=== PATIENT | female | born 1930 | race Caucasian/White ===

== ENCOUNTER 2017-05-27 05:08 | Inpatient (IN) | payer MEDICARE, OTHER ==
[~2017-05-27] VITALS: Ht 170.2 cm; Wt 70.0 kg
[2017-05-27 05:55] LABS: Basophils # (auto) 0.1 uL; Basophils % (auto) 1.5 % (0.0-2.0); Eosinophils # (auto) 0 uL; Eosinophils % (auto) 0.1 % (0.0-7.0); Hematocrit 41.3 % (36.0-46.0); Hemoglobin 13.5 g/dL (12.2-16.2); Lymphocytes # (auto) 0.6 uL; Lymphocytes % (auto) 9.6 % (10.0-50.0); Mean Corpuscular Hemoglobin 30.1 pg (28.0-32.0); Mean Corpuscular Hgb Conc. 32.7 g/dL (32.0-36.0); Monocytes # (auto) 0.4 uL; Monocytes % (auto) 6.6 % (0.0-12.0); Neutrophils # (auto) 5.1 uL; Neutrophils % (auto) 82.2 % (37.0-80.0); Nucleated Red Blood Cells % 0.9 %; Platelet Count (auto) 137 10^3/uL (140-450); Red Blood Cells 4.49 10^6/uL (4.0-5.20); Red Cell Distribution Width 15.5 % (11.8-14.3); White Blood Cell 6.3 10^3/uL (4.4-10.8)
[2017-05-27 06:19] LABS: INR 1.22 (0.9-1.15); Partial Thromboplastin Time 32.7 sec (22.64-33.71); Prothrombin Time 13.3 sec (9.37-12.3)
[2017-05-27 06:25] LABS: Albumin 3.5 g/dL (3.4-5.0); BUN/Creatinine Ratio 21.1; Calcium 8.9 mg/dL (8.5-10.1); Potassium 3.7 mmol/L (3.5-5.1)
[2017-05-27 06:30] LABS: Bilirubin, Total 2.2 mg/dL (0.2-1.0); Total Protein 7.1 g/dL (6.4-8.2)
[2017-05-27] MEDS ORDERED: SODIUM CHLORIDE 0.9% 1,000 ML IV ONE (08:11)
[2017-05-27] MEDS ORDERED: MORPHINE SULF INJ 2 MG/ML SYRINGE 1ML IV PRN (08:15)
[2017-05-27] MEDS ORDERED: SPIRONOLACTONE 25 MG TAB PO ONE (08:15)
[2017-05-27] MEDS ORDERED: FUROSEMIDE 40 MG/4 ML VIAL IV ONE ×2 (08:15→11:15)
[2017-05-27] MEDS ORDERED: MORPHINE SULFATE 4 MG/ML SYR/VIAL IV PRN ×3 (08:30→10:30)
[2017-05-27] MEDS ORDERED: LORazepam 0.5 MG TAB PO PRN (10:30)
[2017-05-27] MEDS ORDERED: NITROGLYCERIN 0.4 MG SL TAB SL PRN (10:30)
[2017-05-27] MEDS ORDERED: HYDROcodone-ACET 5/325MG TAB PO PRN (10:30)
[2017-05-27] MEDS ORDERED: ACETAMINOPHEN 500 MG TAB PO PRN (10:30)
[2017-05-27] MEDS ORDERED: TEMAZEPAM 15 MG CAP PO PRN (10:30)
[2017-05-27] MEDS ORDERED: DEXTROSE (50%) 50ML SYRG IV PRN (10:30)
[2017-05-27] MEDS ORDERED: LACTULOSE 20Gm/30ML SOLN PO PRN (10:30)
[2017-05-27] MEDS ORDERED: PROMETHAZINE HCL 25 MG/ML 1ML IV PRN (10:30)
[2017-05-27] MEDS ORDERED: PANTOPRAZOLE 40 MG TAB PO ONE (11:15)
[2017-05-27] MEDS ORDERED: POTASSIUM CHL 20 Meq TABLET PO ONE (11:15)
[2017-05-27] MEDS ORDERED: ENALAPRIL MALEATE 2.5 MG TAB PO ONE (11:15)
[2017-05-27] MEDS ORDERED: CARVEDILOL 3.125 MG TAB PO ONE (11:15)
[2017-05-27] MEDS ORDERED: ENOXAPARIN SOD 40 MG/0.4 ML SYRINGE SC ONE (11:15)
[2017-05-27] MEDS ORDERED: NITROGLYCERIN 0.2MG/HR TOPICAL PATCH TD ONE (11:15)
[2017-05-27] MEDS ORDERED: IOHEXOL 350 MG/ML 100ML IJ ONE (11:39)
[2017-05-27] MEDS: ACCU-CHEK COMFORT CURVE STRIP VI SCH ×3 (12:03→22:53)
[2017-05-27] MEDS: InsuLIN REG 1unit/0.01ml Soln (100units/ml) SC SCH ×3 (12:03→22:00)
[2017-05-27] MEDS: SODIUM CHLOR 0.9% PF (SALINE LOCK) 10ML VIAL IV SCH ×2 (12:18→22:53)
[2017-05-27 12:42] LABS: Amylase 22 U/L (25-115); Lipase 129 U/L (73-393)
[2017-05-27 14:40] VITALS: BP 110/57
[2017-05-27] MEDS ORDERED: SERT-274 PO (14:52)
[2017-05-27] MEDS ORDERED: CARV6.2551 PO (14:52)
[2017-05-27] MEDS ORDERED: SIMV-8 PO (14:52)
[2017-05-27] MEDS ORDERED: SITA50TA PO (14:52)
[2017-05-27] MEDS ORDERED: GLIP10TA59 PO (14:52)
[2017-05-27] MEDS ORDERED: LISI2.5T47 PO (14:52)
[2017-05-27 17:00] VITALS: BP 129/63
[2017-05-27 22:00] VITALS: BP 115/53
[2017-05-27] MEDS ORDERED: ATORVASTATIN 20 MG TAB PO SCH (22:00)
[2017-05-27] MEDS: CARVEDILOL 3.125 MG TAB PO SCH (22:52)
[2017-05-28 04:46] VITALS: BP 124/91
[2017-05-28 04:54] VITALS: BP 111/67
[2017-05-28 06:40] LABS: Basophils # (auto) 0.1 uL; Basophils % (auto) 1.5 % (0.0-2.0); Eosinophils # (auto) 0.1 uL; Eosinophils % (auto) 1.9 % (0.0-7.0); Hematocrit 38.4 % (36.0-46.0); Hemoglobin 13.1 g/dL (12.2-16.2); Lymphocytes # (auto) 0.7 uL; Lymphocytes % (auto) 15.8 % (10.0-50.0); Mean Corpuscular Hgb Conc. 34.1 g/dL (32.0-36.0); Mean Corpuscular Volume 90.9 fL (80.0-100.0); Monocytes # (auto) 0.5 uL; Monocytes % (auto) 10.5 % (0.0-12.0); Neutrophils # (auto) 3.3 uL; Neutrophils % (auto) 70.3 % (37.0-80.0); Nucleated Red Blood Cells % 0.4 %; Platelet Count (auto) 125 10^3/uL (140-450); Red Blood Cells 4.23 10^6/uL (4.0-5.20); Red Cell Distribution Width 15.2 % (11.8-14.3); White Blood Cell 4.7 10^3/uL (4.4-10.8)
[2017-05-28] MEDS: InsuLIN REG 1unit/0.01ml Soln (100units/ml) SC SCH ×2 (07:00→11:30)
[2017-05-28 07:12] LABS: Albumin 3.1 g/dL (3.4-5.0); BUN/Creatinine Ratio 17.8; Bilirubin, Total 1.7 mg/dL (0.2-1.0); Calcium 8.6 mg/dL (8.5-10.1); Potassium 3.2 mmol/L (3.5-5.1); Total Protein 6.6 g/dL (6.4-8.2)
[2017-05-28] MEDS: ACCU-CHEK COMFORT CURVE STRIP VI SCH ×2 (07:15→11:30)
[2017-05-28] MEDS: SODIUM CHLOR 0.9% PF (SALINE LOCK) 10ML VIAL IV SCH ×2 (07:16→14:30)
[2017-05-28 09:00] VITALS: BP 128/74
[2017-05-28] MEDS: FUROSEMIDE 40 MG/4 ML VIAL IV SCH ×2 (09:56→10:00)
[2017-05-28] MEDS: CARVEDILOL 3.125 MG TAB PO SCH (09:59)
[2017-05-28] MEDS ORDERED: ENOXAPARIN SOD 30 MG/0.3 ML SYRINGE SC SCH (10:00)
[2017-05-28] MEDS ORDERED: ENOXAPARIN SOD 40 MG/0.4 ML SYRINGE SC SCH (10:00)
[2017-05-28] MEDS ORDERED: NITROGLYCERIN 0.2MG/HR TOPICAL PATCH TD SCH (10:00)
[2017-05-28] MEDS ORDERED: ENALAPRIL MALEATE 2.5 MG TAB PO SCH (10:00)
[2017-05-28] MEDS ORDERED: POTASSIUM CHL 20 Meq TABLET PO SCH (10:00)
[2017-05-28] MEDS ORDERED: PANTOPRAZOLE 40 MG TAB PO SCH (10:00)
[2017-05-28] MEDS ORDERED: POTASSIUM CHL 20 Meq TABLET PO ONE (12:00)
[2017-05-28] MEDS ORDERED: glipiZIDE 5 MG TAB PO ONE (12:15)
[2017-05-28] MEDS ORDERED: FUROSEMIDE 20 MG/2 ML VIAL IV ONE (12:15)
[2017-05-28 13:00] VITALS: BP 117/63
[2017-05-28] MEDS: MAGNESIUM SULFATE 1GM/100ML 100 ML IV PRN ×2 (13:23→14:37)
[2017-05-28 16:41] VITALS: BP 113/68
[2017-05-28 17:08] VITALS: BP 113/68
== END 2017-05-28 18:20 | disposition home or self-care (01) | DRG 291 ==
LOC: EDBD 05:08 → ER 05:08 → TELE 05:09 → TELE-WESTW 14:17 → TELE-CENTR 15:26
PROVIDERS: ADMIT Internal Medicine; ATTEND Family Medicine
DX: I13.0 Hypertensive heart and chronic kidney disease with heart failure and stage 1 through stage 4 chronic kidney disease, or unspecified chronic kidney disease (principal); I50.23 Acute on chronic systolic (congestive) heart failure; I26.99 Other pulmonary embolism without acute cor pulmonale; D69.6 Thrombocytopenia, unspecified; E11.21 Type 2 diabetes mellitus with diabetic nephropathy; E11.22 Type 2 diabetes mellitus with diabetic chronic kidney disease; K81.1 Chronic cholecystitis; I42.9 Cardiomyopathy, unspecified; N18.3 Chronic kidney disease, stage 3 (moderate); K52.9 Noninfective gastroenteritis and colitis, unspecified; R79.1 Abnormal coagulation profile; K59.00 Constipation, unspecified; F41.9 Anxiety disorder, unspecified; G47.00 Insomnia, unspecified; Z82.49 Family history of ischemic heart disease and other diseases of the circulatory system; Z83.3 Family history of diabetes mellitus; Z90.710 Acquired absence of both cervix and uterus; Z95.810 Presence of automatic (implantable) cardiac defibrillator; Z90.49 Acquired absence of other specified parts of digestive tract; Z88.6 Allergy status to analgesic agent; Z88.0 Allergy status to penicillin; Z91.041 Radiographic dye allergy status
CPT/HCPCS: 36415; 71045; 76705; 80053; 80061; 82150; 82270; 82378; 82550; 82962; 83036; 83690; 83735; 83880; 84443; 84484; 85025; 85379; 85610; 85652; 85730; 86141; 87493; 93005; 93306; 93970; 94761; 96361; 96372; 96374; J1815